=== PATIENT | male | born 1980 | race Caucasian/White ===

== ENCOUNTER 2020-03-15 14:40 | Emergency (ER) | payer SELFPAY ==
[~2020-03-15] VITALS: Ht 177.8 cm; Wt 93.0 kg
[2020-03-15 14:41] VITALS: BP 136/85
--- NOTE | 2020-03-15 16:02 | NUR ---
ADMISSIONS COORDINATOR: PT TO ROOM FROM LOBBY.
--- NOTE | 2020-03-15 16:07 | NUR ---
PATIENT NOT IN ROOM AT THIS TIME. SAW PATIENT WALK BACK TO ROOM AT APPROX 1603
[2020-03-15] MEDS ORDERED: BUPR150T6 PO (16:14)
[2020-03-15] MEDS ORDERED: QUET25TA7 PO (16:15)
[2020-03-15] MEDS ORDERED: SERT50TA28 PO (16:15)
--- NOTE | 2020-03-15 16:20 | NUR ---
PATIENT BACK IN ROOM, STATES HE JUST MOVED HERE FROM [place] AND NEEDS A REFILL ON SERTRALINE, QUETIAPINE, AND BUPROPION
== END 2020-03-15 17:28 | disposition home or self-care (01) ==
LOC: ED 17:20
DX: L40.9 Psoriasis, unspecified (principal); Z76.0 Encounter for issue of repeat prescription; F17.200 Nicotine dependence, unspecified, uncomplicated
CPT/HCPCS: 99281

== ENCOUNTER 2020-04-03 18:03 | Emergency (ER) | payer MEDICAID ==
[~2020-04-03] VITALS: Ht 177.8 cm; Wt 94.2 kg
[~2020-04-03 18:03] MED LIST: BUPR150T6 PO; QUET25TA7 PO; SERT50TA28 PO
--- NOTE | 2020-04-03 18:14 | NUR ---
NO ANSWER X 1
[2020-04-03 18:16] VITALS: BP 140/98
== END 2020-04-03 18:28 | disposition home or self-care (01) ==
LOC: ED 18:15
DX: Z76.0 Encounter for issue of repeat prescription (principal)
CPT/HCPCS: 99281

== ENCOUNTER 2020-04-10 08:59 | Emergency (ER) | payer MEDICAID ==
[~2020-04-10] VITALS: Ht 177.8 cm; Wt 94.2 kg
[2020-04-10 09:02] VITALS: BP 112/74
== END 2020-04-10 09:29 | disposition home or self-care (01) ==
LOC: ED 09:18
DX: B34.9 Viral infection, unspecified (principal); R09.81 Nasal congestion; J02.9 Acute pharyngitis, unspecified; F17.210 Nicotine dependence, cigarettes, uncomplicated
CPT/HCPCS: 87635; 99282; 99283; 99406

== ENCOUNTER 2020-04-20 19:58 | Emergency (ER) | payer MEDICAID ==
[~2020-04-20] VITALS: Ht 177.8 cm; Wt 94.8 kg
[2020-04-20 20:11] VITALS: BP 132/87
== END 2020-04-20 21:48 | disposition home or self-care (01) ==
LOC: ED 20:41
DX: F10.10 Alcohol abuse, uncomplicated (principal); F17.200 Nicotine dependence, unspecified, uncomplicated; Z76.0 Encounter for issue of repeat prescription; Y90.0 Blood alcohol level of less than 20 mg/100 ml
CPT/HCPCS: 99281

== ENCOUNTER 2020-04-25 06:10 | Emergency (ER) | payer MEDICAID ==
[~2020-04-25] VITALS: Ht 180.3 cm; Wt 95.0 kg
--- NOTE | 2020-04-25 06:14 | NUR ---
PT WILMA NAGY FROM [address] [place] [address] FOR CP, STATES IT IS "OFF AD ON" "SHARP, AND IS WORSE WHEN I TAKE DEEP BREATHS." STATES IT RADIATES TO THE BACK, PULSES 2+, GROSS NEURO INTACT, REPORTS N/V. SUBSTERNAL ABDOMINAL/STERNAL CHEST TENDERNESS UPON PALPATION. WCTM. PT PLACED ON SPO2/BP/ECG MONITORING AT THIS TIME. ALBA OLEARY AT BS FOR EVAL AND POC.
[2020-04-25] MEDS ORDERED: SERT100T PO (06:20)
[2020-04-25] MEDS ORDERED: ONDANSETRON 2MG/ML, 2ML ONE (06:24)
[2020-04-25] MEDS ORDERED: ASPIRIN 81 MG TABLET CHEW ONE (06:24)
[2020-04-25] MEDS ORDERED: FAMOTIDINE 20 MG/2 ML ONE (06:24)
[2020-04-25] MEDS ORDERED: FAMOTIDINE 20 MG/2 ML IVPush ONE (06:30)
[2020-04-25] MEDS ORDERED: SODIUM CHLORIDE FLUSH 10ML SYR IVF ONE (06:30)
[2020-04-25] MEDS ORDERED: ASPIRIN 81 MG TABLET CHEW PO ONE (06:30)
[2020-04-25] MEDS ORDERED: ONDANSETRON 2MG/ML, 2ML IVPush ONE (06:30)
--- NOTE | 2020-04-25 06:41 | NUR ---
pt medicated per beny, rad at bs, nad, appears comfortable, provided warm blankets, wctm.
--- NOTE | 2020-04-25 06:44 | NUR ---
report to [facility], pt care transferred at this time.
--- NOTE | 2020-04-25 06:46 | NUR ---
REC'D REPORT FROM [employer] NURSE. PT RESTING IN BED. VSS.
[2020-04-25 06:54] LABS: BASOPHILS % (AUTO) 1 % (0-1); EOSINOPHILS % (AUTO) 1 % (1-7); LYMPHOCYTES % (AUTO) 34 % (22-44); MEAN CORPUSCULAR HEMOGLOBIN 32.5 pg (27.5-34.5); MEAN CORPUSCULAR HGB CONC 35.1 g/dL (33.2-36.2); MEAN PLATELET VOLUME 8.3 fL (7.4-10.4); MONOCYTES % (AUTO) 6 % (2-9); NEUTROPHILS % (AUTO) 58 % (42-75); PLATELET COUNT 211 x10^3/uL (130-400); RED BLOOD COUNT 4.65 x10^6/uL (4.38-5.82); RED CELL DISTRIBUTION WIDTH 12.5 % (9.4-14.8)
[2020-04-25 06:58] LABS: MD NO
--- NOTE | 2020-04-25 06:59 | NUR ---
PT SLEEPING IN BED WHEN CHECKING ON PT. upon waking pt states his pain is 5/10
[2020-04-25 07:01] LABS: ALANINE AMINOTRANSFERASE 60 U/L (12-78); ALBUMIN 3.8 g/dL (3.4-5.0); ANION GAP 9 mmol/L (5-15); CALCIUM 9.2 mg/dL (8.5-10.1); CHLORIDE 103 mmol/L (98-107); CREATININE 0.89 mg/dL (0.7-1.3)
[2020-04-25 07:06] LABS: ALKALINE PHOSPHATASE 130 U/L (45-117); BILIRUBIN,TOTAL 0.8 mg/dL (0.2-1.0); TOTAL PROTEIN 8.1 g/dL (6.4-8.2); TROPONIN I < 0.015 ng/mL (0.000-0.045)
[2020-04-25 07:41] VITALS: BP 109/76
--- NOTE | 2020-04-25 07:43 | NUR ---
pt sleeping in bed. vss.
--- NOTE | 2020-04-25 09:21 | NUR ---
GIVEN DISCHARGE AND REASSURANCE THAT ALL TESTS NEGATIVE. TO DISCHARGE WINDOW VIA W/C
== END 2020-04-25 09:23 | disposition home or self-care (01) ==
LOC: ED 06:51
DX: R07.2 Precordial pain (principal); R07.89 Other chest pain; R11.0 Nausea
CPT/HCPCS: 36415; 71045; 80053; 83690; 84484; 85025; 93005; 96374; 96375; 99285; J2405